=== PATIENT | male | born 1970 | race Two or more races ===

== ENCOUNTER 2017-01-22 13:42 | Emergency (ER) | payer OTHER ==
[~2017-01-22] VITALS: Ht 162.6 cm; Wt 70.8 kg
[2017-01-22 13:45] VITALS: BP 134/83
--- NOTE | 2017-01-22 14:15 | Emergency Room Report ---
History of Present Illness General Chief Complaint: Pain Source: Patient Present Illness HPI 46-year-old male presents to the emergency department complaining of erythema, tenderness and swelling to the right thumb over the course of 2 days. Patient denies trauma or fall. Patient denies recent hangnail. Patient denies fevers, chills, blisters, rashes. Denies CP, Palpitations, LOC, AMS, dizziness, Changes in Vision, Sensation, paresthesias, or a sudden severe headache. Allergies: Coded Allergies: No Known Allergies (Unverified , 01/22/17) Patient History Past Medical History: see triage record Past Surgical History: none Pertinent Family History: none Reviewed Nursing Documentation: PMH: Agreed, PSxH: Agreed Nursing Documentation-PMH Past Medical History: No Stated History Review of Systems All Other Systems: negative except mentioned in HPI Physical Exam Vital Signs Date Time Temp Pulse Resp B/P (MAP) Pulse Ox O2 Delivery O2 Flow Rate FiO2 01/22/17 13:45 97.9 82 18 134/83 97 Room Air Sp02 EP Interpretation: reviewed, normal General Appearance: no apparent distress, alert, GCS 15, non-toxic Head: normocephalic, atraumatic Eyes: bilateral eye normal inspection, bilateral eye PERRL ENT: hearing grossly normal, normal voice Neck: full range of motion Respiratory: lungs clear, normal breath sounds, speaking full sentences Cardiovascular #1: regular rate, rhythm, normal capillary refill Musculoskeletal: back normal, gait/station normal, normal range of motion, tender - superficial ttp and erythema with purulence noted to the lateral cuticle of the right thumb. no bony ttp, no fingerpad tenderness. Neurologic: alert, oriented x3, responsive, motor strength/tone normal, sensory intact, speech normal Skin: normal color, no rash, warm/dry, well hydrated, other - erythema, swelling, tenderness with purulence of the lateral cuticle of the right thumb. Procedures Incision and Drainage Incision and Drainage : Consent: Verbal Site: lateral cuticle of the right thumb Blade Size: 11 I & D Procedure: betadine prep Wound Location: upper extremity - lateral cuticle of the right thumb Wound's Depth, Shape: superficial Wound Length (cm): 0 Wound Explored: contaminated - purulent fluid is d/c Anesthesia: other - none Splint Applied?: No Sling Applied?: No Patient Tolerated: Well Medical Decision Making PA Attestation Dr. Martinez is my supervising Physician whom patient management has been discussed with. Diagnostic Impression: Primary Impression: Paronychia of finger of right hand ER Course Pt. presents to the ED c/o pain, swelling, and erythema of right thumb. Ddx considered but are not limited to cellulitis, paronychia, eponychia, ingrown toe nail, fracture, d/L, gout Vital signs: are WNL, pt. is afebrile H&PE are most consistent with Right Thumb Paronychia ORDERS: none required at this time, the diagnosis is clinical ED INTERVENTIONS: -I & D DISCHARGE: At this time pt. is stable for d/c to home. Will provide printed patient care instructions, and any necessary prescriptions. Care plan and follow up instructions have been discussed with the patient prior to discharge. Last Vital Signs Date Time Temp Pulse Resp B/P (MAP) Pulse Ox O2 Delivery O2 Flow Rate FiO2 01/22/17 13:45 97.9 82 18 134/83 97 Room Air Disposition: HOME, SELF-CARE Condition: Stable Scripts Acetaminophen* (TYLENOL EXTRA STRENGTH*) 500 Mg Tablet 500 MG ORAL Q6H, #20 TAB 0 Refills Prov: Nathaly Cooley 01/22/17 Bacitracin/Polymyxin B Sulfate (BACITRACIN-POLYMYXIN OINTMENT) 28.35 Gm Oint...g. 1 APPLIC TP BID, #28.3 GM Prov: Nathaly Cooley 01/22/17 Clindamycin Hcl (CLINDAMYCIN HCL) 300 Mg Capsule 300 MG ORAL FOUR TIMES A DAY for 7 Days, #28 CAP Prov: Nathaly Cooley 01/22/17 Patient Instructions: Paronychia Additional Instructions: Take medications as directed. Follow up with a Primary Care Provider in 3-5 days, even if your symptoms have resolved. --Please review list of primary care clinics, if you do not already have a primary care provider Return sooner to ED if new symptoms occur, or current symptoms become worse. - Please note that this Emergency Department Report was dictated using [employer] feeder technology software, occasionally this can lead to erroneous entry secondary to interpretation by the dictation equipment. Nathaly Cooley Jan 22, 2017 14:15
[2017-01-22] MEDS ORDERED: TYLENOL EXTRA500 MG ORAL (14:16)
[2017-01-22] MEDS ORDERED: BACITRACIN-P28.35 GM TP (14:16)
[2017-01-22] MEDS ORDERED: CLINDAMYCIN HC300 MG ORAL (14:16)
[2017-01-22 14:35] VITALS: BP 127/87
[2017-03-13] MEDS ORDERED: NAPROXEN500 M1 ORAL (16:16)
== END 2017-01-22 14:36 | disposition home or self-care (01) ==
LOC: EMR 14:13
DX: M79.89 Other specified soft tissue disorders (principal); L03.011 Cellulitis of right finger
CPT/HCPCS: 10060; 99284

== ENCOUNTER → 2017-03-13 | Emergency (ER) | payer OTHER ==
[~2017-03-13] VITALS: Ht 162.6 cm; Wt 72.6 kg
[~2017-03-13] MED LIST: BACITRACIN-P28.35 GM TP; CLINDAMYCIN HC300 MG ORAL; NAPROXEN500 M1 ORAL; TYLENOL EXTRA500 MG ORAL
--- NOTE | 2017-03-13 16:10 | Diagnostic Imaging Report ---
Indications: Reason For Exam: PAIN Technique: Three views of the left knee Comparison: None Findings: No acute fractures. No dislocations. Joint spaces are preserved. No radiopaque foreign body. Small superior pole patellar spur. Normal mineralization. Impression: No acute process
--- NOTE | 2017-03-13 16:16 | Emergency Room Report ---
History of Present Illness General Chief Complaint: Lower Extremity Injury Source: Patient Present Illness HPI 46 y/o male c/o left knee pain x 1 day. 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 States he feels his knee is grinding / bone on bone when he walks. States pain is better with rest. States he has a hx of knee problems in the past. Not taking medications for sxs. Patient denies any numbness, tingling, pressure, paralysis, cyanosis, bruising, loss of sensation, or loss of range of motion. Allergies: Coded Allergies: No Known Allergies (Unverified , 01/22/17) Patient History Past Medical History: see triage record Past Surgical History: none Pertinent Family History: none Reviewed Nursing Documentation: PMH: Agreed, PSxH: Agreed Nursing Documentation-PMH Past Medical History: No Stated History Review of Systems All Other Systems: negative except mentioned in HPI Physical Exam Vital Signs Date Time Temp Pulse Resp B/P (MAP) Pulse Ox O2 Delivery O2 Flow Rate FiO2 03/13/17 14:28 97.3 65 20 132/90 99 Room Air Sp02 EP Interpretation: reviewed, normal General Appearance: no apparent distress, alert, GCS 15, non-toxic Head: normocephalic, atraumatic Eyes: bilateral eye normal inspection, bilateral eye PERRL ENT: no angioedema, normal voice Respiratory: chest non-tender, lungs clear, normal breath sounds, speaking full sentences Cardiovascular #1: regular rate, rhythm, no edema, normal capillary refill Cardiovascular #2: 2+ dorsalis pedis (R), 2+ dorsalis pedis (L) Musculoskeletal: back normal, digits/nails normal, gait/station normal, normal range of motion, non-tender Neurologic: alert, oriented x3, responsive, motor strength/tone normal, sensory intact, speech normal Psychiatric: judgement/insight normal, memory normal, mood/affect normal, no suicidal/homicidal ideation Skin: normal color, no rash, warm/dry, well hydrated Medical Decision Making PA Attestation Dr. Davidson my supervising physician with whom patient management has been discussed with. Diagnostic Impression: Primary Impression: Knee pain, acute Qualified Codes: M25.562 - Pain in left knee Additional Impression: Injury of lower extremity Qualified Codes: S89.92XA - Unspecified injury of left lower leg, initial encounter ER Course Pt. presents to the ED c/o left knee pain Ddx considered but are not limited to fracture, contusion, dislocation, sprain, strain, arthritis Vital signs: are WNL, pt. is afebrile H&PE are most consistent with knee pain, likely knee sprain ORDERS: XR left knee ED INTERVENTIONS: none required at this time. DISCHARGE: At this time pt. is stable for d/c to home. Will provide printed patient care instructions, and any necessary prescriptions. Care plan and follow up instructions have been discussed with the patient prior to discharge. Last Vital Signs Date Time Temp Pulse Resp B/P (MAP) Pulse Ox O2 Delivery O2 Flow Rate FiO2 03/13/17 14:28 97.3 65 20 132/90 99 Room Air Disposition: HOME, SELF-CARE Condition: Stable Scripts Naproxen* (NAPROXEN*) 500 Mg Tablet.dr 500 MG ORAL TWICE A DAY for 10 Days, #20 TAB Prov: GENEVIVEE MAYFIELD 03/13/17 Referrals: [facility],REFERRING (PCP) Patient Instructions: Knee Sprain Additional Instructions: Take medication as directed. Patient advised to follow up with primary care provider within next 3-5 days if no improvement. Advised patient to use RICE therapy and nsaids as prescribed. Patient is to go to the ER immediately if they experience any pain that is not responding to medication, excess swelling, pressure feeling, loss of color, cyanosis, paralysis, or numbness. GENEVIEVE MAYFIELD Mar 13, 2017 16:16
[2017-03-13 16:45] VITALS: BP 128/84
== END | disposition home or self-care (01) ==
LOC: EMR 15:47
DX: S89.82XA Other specified injuries of left lower leg, initial encounter (principal); X50.1XXA Overexertion from prolonged static or awkward postures, initial encounter; Y92.89 Other specified places as the place of occurrence of the external cause
CPT/HCPCS: 99283